=== PATIENT | female | born 1965 | race Caucasian/White ===

== ENCOUNTER 2024-10-06 15:35 | Emergency (ER) | payer MEDICAID | END 2024-10-06 17:20 | disposition home or self-care (01) | LOC: JP.ED 15:35 | DX: M23.92 Unspecified internal derangement of left knee (principal); Z79.899 Other long term (current) drug therapy | CPT/HCPCS: 73562-26-LT; 73562-LT; 99283 ==

== ENCOUNTER 2025-01-05 06:19 | Day surgery (SDC) | payer MEDICAID ==
[2025-01-05 06:45] LABS: PLATELET COUNT,PLT 276.0 K/uL (130-375); RED BLOOD CELL COUNT 4.67 M/uL (3.77-5.24); WHITE BLOOD CELL COUNT,WBC 10.6 K/uL (3.2-11.0)
[2025-01-05] MEDS: Nozin Nasal Sanitizer NASBOTH ONE (06:54)
[2025-01-05 07:02] LABS: BLOOD UREA NITROGEN,BUN 18.0 mg/dL (7-18); CARBON DIOXIDE,CO2 28.0 mmol/L (21-32); CHLORIDE,CL 107.0 mmol/L (100-108); CREATININE 0.8 mg/dL (0.6-1.0); EST CRCL DRUG DOSING (CG) 74.08 mL/min; ESTIMATED GFR 84.0 mL/min (>60); GLUCOSE RANDOM 110.0 mg/dL (74-106); POTASSIUM,K 4.0 mmol/L (3.6-5.2); SODIUM,NA 142.0 mmol/L (140-148)
[2025-01-05] MEDS: Lactated Ringers 1,000 ML IV SCH (07:16)
[2025-01-05] MEDS ORDERED: fentaNYL 250 MCG/5 ML SDV ONE (07:18)
[2025-01-05] MEDS ORDERED: Ondansetron 4 MG/2 ML SDV ONE (07:19)
[2025-01-05] MEDS ORDERED: Propofol 200 MG/20 ML SDV ONE (07:19)
[2025-01-05] MEDS ORDERED: Dexamethasone 4 MG/ML SDV ONE (07:19)
== END 2025-01-05 10:30 | disposition home or self-care (01) ==
LOC: JP.SDS 06:19
PROVIDERS: ATTEND Specialist
DX: S83.281A Other tear of lateral meniscus, current injury, right knee, initial encounter (principal); S83.241A Other tear of medial meniscus, current injury, right knee, initial encounter; M22.41 Chondromalacia patellae, right knee; E78.00 Pure hypercholesterolemia, unspecified; F17.210 Nicotine dependence, cigarettes, uncomplicated; X58.XXXA Exposure to other specified factors, initial encounter; Z79.899 Other long term (current) drug therapy
CPT/HCPCS: 01400; 29881; 36415; 80048; 85027; 93005; 93010; 94640; A9270; J0131; J0665; J0690; J1100; J2405; J2704; J3010; J7120; J7620; J3490